=== PATIENT | male | born 1960 | race Caucasian/White ===

== ENCOUNTER 2022-07-24 11:29 | Outpatient (CLI) | payer BC, SELFPAY ==
[2022-07-24 21:36] LABS: Albumin* 4.8 g/dL (3.3-5.0); Chloride* 98 mmol/L (96-114)
[2022-07-24 21:37] LABS: Potassium* 4.3 mmol/L (3.6-5.1); Sodium* 140 mmol/L (135-149)
[2022-07-24 21:39] LABS: Bilirubin Total* 0.3 mg/dL (0.1-1.5); Carbon Dioxide* 31 mmol/L (20-32); Creatinine* 1.1 mg/dL (0.5-1.5); Estimated Glomerular Filt Rate 76 ml/min
[2022-07-24 21:40] LABS: Alanine Aminotransferase* 45 U/L (4-50); Alkaline Phosphatase* 122 U/L (40-150); Aspartate Amino Transferase* 40 U/L (12-35); Blood Urea Nitrogen* 14 mg/dL (7-30); Calcium* 8.5 mg/dL (8.4-10.6); Glucose* 98 mg/dL (60-115); Total Protein* 7.4 g/dL (6.0-8.3)
[2022-07-24 22:05] LABS: PSA Screen* 0.77 ng/mL (0.10-4.00)
== END 2022-07-24 11:30 | disposition home or self-care (01) ==
PROVIDERS: PCP Family Medicine; Visit Provider Family Medicine
DX: Z00.00 Encounter for general adult medical examination without abnormal findings (principal); E03.9 Hypothyroidism, unspecified; E78.5 Hyperlipidemia, unspecified; I10 Essential (primary) hypertension; R73.01 Impaired fasting glucose; R63.5 Abnormal weight gain; Z12.5 Encounter for screening for malignant neoplasm of prostate
CPT/HCPCS: 80053; 84153; 84443

== ENCOUNTER 2022-09-28 08:42 | Outpatient (CLI) | payer BC, SELFPAY ==
[2022-09-28 14:19] LABS: Cholesterol* 149 mg/dL (90-199)
[2022-09-28 14:20] LABS: HDL Cholesterol* 42 mg/dL (>=40); LDL Cholesterol Calculated 68 mg/dL (<100); Triglycerides* 194 mg/dL (40-149)
== END 2022-09-28 08:43 | disposition home or self-care (01) ==
PROVIDERS: PCP Family Medicine; Visit Provider Family Medicine
DX: E03.9 Hypothyroidism, unspecified (principal); E78.5 Hyperlipidemia, unspecified; I10 Essential (primary) hypertension
CPT/HCPCS: 80061; 84443

== ENCOUNTER 2022-12-17 09:30 | Outpatient (CLI) | payer BC, SELFPAY | END 2022-12-17 09:31 | disposition home or self-care (01) | LOC: NFLDREF 12-18 13:13 | PROVIDERS: PCP Family Medicine; Referring Provider Family Medicine; Visit Provider Family Medicine | DX: E03.9 Hypothyroidism, unspecified (principal) | CPT/HCPCS: 84443 ==

== ENCOUNTER 2023-06-18 14:00 | Outpatient (CLI) | payer BC, SELFPAY | END 2023-06-18 14:01 | disposition home or self-care (01) | PROVIDERS: PCP Family Medicine; Visit Provider Family Medicine | DX: Z00.00 Encounter for general adult medical examination without abnormal findings (principal); R53.83 Other fatigue; R73.03 Prediabetes; E03.9 Hypothyroidism, unspecified; E66.9 Obesity, unspecified; E78.5 Hyperlipidemia, unspecified; R73.01 Impaired fasting glucose | CPT/HCPCS: 80053; 84443 ==

== ENCOUNTER 2023-08-20 08:13 | Outpatient (CLI) | payer BC, SELFPAY ==
--- NOTE | 2023-08-20 10:06 | W.ANESCHARGE ---
Anesthesia Charges Start Date/Time Anesthesia Start Date: 08/20/23 Anesthesia Start Time: 09:36 Stop Date/Time Anesthesia Stop Date: 08/20/23 Anesthesia Stop Time: 09:58
--- NOTE | 2023-08-20 11:45 | W.ANESCHARGE ---
Anesthesia Charges Start Date/Time Anesthesia Start Date: 08/20/23 Anesthesia Start Time: 09:36 Stop Date/Time Anesthesia Stop Date: 08/20/23 Anesthesia Stop Time: 09:58
== END 2023-08-20 08:14 | disposition home or self-care (01) ==
LOC: OP CLINIC 08:14
PROVIDERS: PCP Family Medicine; Visit Provider Surgery
DX: R13.10 Dysphagia, unspecified (principal); K22.89 Other specified disease of esophagus; K20.90 Esophagitis, unspecified without bleeding
CPT/HCPCS: 00731; 43239; 88305; 88342; J2704; J3490

== ENCOUNTER 2023-09-20 08:12 | Outpatient (CLI) | payer BC, SELFPAY | END 2023-09-20 08:13 | disposition home or self-care (01) | LOC: NFLDREF 09-22 11:39 | PROVIDERS: PCP Family Medicine; Referring Provider Family Medicine; Visit Provider Family Medicine | DX: R10.9 Unspecified abdominal pain (principal); E78.5 Hyperlipidemia, unspecified; Z12.5 Encounter for screening for malignant neoplasm of prostate; I10 Essential (primary) hypertension; R53.83 Other fatigue | CPT/HCPCS: 80048; 80061; 84153; 84270; 84402; 84403; 86364 ==

== ENCOUNTER 2023-10-04 15:27 | Outpatient (CLI) | payer BC, OTHER, SELFPAY ==
--- NOTE | 2023-10-04 16:00 | CRLHL7_ITS ---
For Patients: As a result of the Century Cures Act, medical imaging exams and procedure reports are released immediately into your electronic medical record. You may view this report before your referring provider. If you have questions, please contact your health care provider. INDICATION: ABD PAIN. LUQ MAINLY. OVERALL ABD DISCOMFORT TECHNIQUE: CT abdomen and pelvis acquired with 127 cc Isovue 370 IV contrast. COMPARISON: October 2019. FINDINGS: Lower chest: The visualized lower lungs are aerated. No pleural or pericardial effusion. ABDOMEN: Liver: Normal enhancement. No focal suspicious hepatic lesions. Gallbladder and biliary: Normal gallbladder without radiopaque stone. Normal caliber bile ducts. Spleen: Normal size and enhancement. Pancreas: Normal enhancement without peripancreatic inflammatory changes or ductal dilatation. Adrenal glands: Normal adrenal glands. Kidneys and ureters: Normal enhancement. No radio-opaque calculi. No hydroureteronephrosis. GI tract: The stomach is relatively decompressed. Normal caliber small and large bowel loops. Normal appendix. Vascular structures: Normal caliber aorta with atherosclerotic calcifications. Diminutive origin of the celiac axis. Lymph nodes: No lymphadenopathy in the abdomen or pelvis by size criteria. Peritoneum: No free air, free fluid, or focal drainable fluid collection. PELVIS: Genitourinary system: Circumferential wall thickening of the urinary bladder. Normal size prostate. SKELETAL STRUCTURES AND SOFT TISSUES: Moderate-sized fat containing umbilical hernia. Right hip arthroplasty. Lumbar spondylosis. Old left-sided rib fracture. IMPRESSION: 1. No discrete acute abdominal pelvic process. No obstruction. No hydroureteronephrosis. Normal appendix. 2. Moderate size fat containing umbilical hernia. 3. Circumferential wall thickening of the urinary bladder. Recommend correlation with urinalysis to assess for underlying cystitis. Please note that all CT scans at this facility use dose modulation, iterative reconstruction, and/or weight-based dosing when appropriate to reduce radiation dose to as low as reasonably achievable. Dictated by Winston Cavazos MD @ 10/08/2023 7:37:49 PM (Electronically Signed)
== END 2023-10-04 15:28 | disposition home or self-care (01) ==
LOC: CT 15:28
PROVIDERS: PCP Family Medicine; Visit Provider Surgery
DX: R10.9 Unspecified abdominal pain (principal); K42.9 Umbilical hernia without obstruction or gangrene
CPT/HCPCS: 74177; Q9967

== ENCOUNTER 2023-10-08 09:11 | Outpatient (CLI) | payer BC, OTHER, SELFPAY ==
--- NOTE | 2023-10-08 10:01 | W.ANESCHARGE ---
Anesthesia Charges Start Date/Time Anesthesia Start Date: 10/08/23 Anesthesia Start Time: 09:53 Stop Date/Time Anesthesia Stop Date: 10/08/23 Anesthesia Stop Time: 10:15
--- NOTE | 2023-10-08 10:17 | W.ANESCHARGE ---
Anesthesia Charges Start Date/Time Anesthesia Start Date: 10/08/23 Anesthesia Start Time: 09:53 Stop Date/Time Anesthesia Stop Date: 10/08/23 Anesthesia Stop Time: 10:15
== END 2023-10-08 09:12 | disposition home or self-care (01) ==
LOC: OP CLINIC 09:12
PROVIDERS: PCP Family Medicine; Visit Provider Internal Medicine
DX: R10.84 Generalized abdominal pain (principal)
CPT/HCPCS: 00811; 45380; 88305; J2704